=== PATIENT | male | born 1980 | race Caucasian/White ===

== ENCOUNTER 2022-05-28 18:36 | Emergency (ER) | payer OTHER ==
[~2022-05-28] VITALS: Ht 180.3 cm; Wt 68.0 kg
[~2022-05-28 18:36] MED LIST: ACEBUTCAFT PO; CLIN150 PO; CLIN300 PO; CYCL10 PO; DIPATR PO; HYDACE5 PO; IBUP600 PO; IBUP800 PO; METR500 PO; NAPR500 PO; OXYACE5T PO; PROM25 PO; RANI150 PO; RXCLIN PO; RXHYDACE PO; RXTRAM50 PO; TRAM50 PO
== END 2022-05-28 19:54 | disposition home or self-care (01) ==
LOC: ER 18:36
DX: Z23 Encounter for immunization (principal); F17.210 Nicotine dependence, cigarettes, uncomplicated; Z88.6 Allergy status to analgesic agent; Z88.1 Allergy status to other antibiotic agents; Z88.5 Allergy status to narcotic agent; Z88.0 Allergy status to penicillin

== ENCOUNTER 2022-06-08 17:22 | Emergency (ER) | payer OTHER ==
[~2022-06-08] VITALS: Ht 180.3 cm; Wt 68.0 kg
== END 2022-06-08 18:34 | disposition home or self-care (01) ==
LOC: ER 17:22
DX: Z23 Encounter for immunization (principal); F17.210 Nicotine dependence, cigarettes, uncomplicated; Z88.1 Allergy status to other antibiotic agents; Z88.5 Allergy status to narcotic agent; Z88.0 Allergy status to penicillin
CPT/HCPCS: 90471

== ENCOUNTER 2024-10-16 14:31 | Emergency (ER) | payer OTHER ==
[~2024-10-16] VITALS: Ht 177.8 cm; Wt 70.3 kg
[2024-10-16 14:37] VITALS: BP 131/91
[2024-10-16] MEDS ORDERED: Acetaminophen 325 MG TABLET PO ONE (14:45)
[2024-10-16 15:48] LABS: CORONAVIRUS COVID-19 AG Negative (NEGATIVE); INFLUENZA A AG Positive (NEGATIVE); INFLUENZA B AG Negative (NEGATIVE)
== END 2024-10-16 16:08 | disposition home or self-care (01) ==
LOC: ER 14:31
PROVIDERS: Physician Assistant
DX: J10.1 Influenza due to other identified influenza virus with other respiratory manifestations (principal); F17.210 Nicotine dependence, cigarettes, uncomplicated; Z88.0 Allergy status to penicillin; Z88.5 Allergy status to narcotic agent; Z88.1 Allergy status to other antibiotic agents
CPT/HCPCS: 87428-QW; 99283; A9270